=== PATIENT | female | born 1990 | race Caucasian/White ===

== ENCOUNTER 2017-10-28 20:57 | Emergency (ER) | payer OTHER ==
[~2017-10-28] VITALS: Ht 167.6 cm; Wt 91.6 kg
[~2017-10-28 20:57] MED LIST: CHLO25 PO; CIPDEXSU RIGHTEAR; CYCL10 PO; Ciprodex Otic7.5 ML RIGHTEAR; Norco 5-325 Ta1 EACH PO; PROM25 PO; RISP.5 PO; Vistaril50 MG PO
[2017-10-28] MEDS ORDERED: QUET300 PO (21:05)
[2017-10-28] MEDS ORDERED: PENVK500 PO (21:21)
[2017-10-28] MEDS ORDERED: ZADITOR5 ML LEFTEYE (21:21)
[2017-10-28] MEDS ORDERED: KETO10 PO (21:21)
== END 2017-10-28 21:49 | disposition home or self-care (01) ==
LOC: ER 20:57
DX: K02.9 Dental caries, unspecified (principal); H10.12 Acute atopic conjunctivitis, left eye; F20.9 Schizophrenia, unspecified; F17.210 Nicotine dependence, cigarettes, uncomplicated; Z88.8 Allergy status to other drugs, medicaments and biological substances; Z79.899 Other long term (current) drug therapy
CPT/HCPCS: 99283

== ENCOUNTER 2018-07-05 21:53 | Emergency (ER) | payer OTHER ==
[~2018-07-05] VITALS: Ht 167.6 cm; Wt 98.0 kg
[~2018-07-05 21:53] MED LIST changes: +CEFA500ER PO; +CLON.5 PO; +KETO10 PO; +LATUDA80 MG PO; +PENVK500 PO; +QUET300 PO; +ZADITOR5 ML LEFTEYE
[2018-07-05] MEDS ORDERED: Vibramycin100 MG PO (23:21)
== END 2018-07-05 23:36 | disposition home or self-care (01) ==
LOC: ER 21:53
DX: S01.85XA Open bite of other part of head, initial encounter (principal); W54.0XXA Bitten by dog, initial encounter; Z88.8 Allergy status to other drugs, medicaments and biological substances; Z88.0 Allergy status to penicillin; Z79.899 Other long term (current) drug therapy; F20.9 Schizophrenia, unspecified; F17.210 Nicotine dependence, cigarettes, uncomplicated
CPT/HCPCS: 99283

== ENCOUNTER 2019-09-09 14:22 | Emergency (ER) | payer OTHER ==
[~2019-09-09] VITALS: Ht 165.1 cm; Wt 95.2 kg
[~2019-09-09 14:22] MED LIST changes: +Vibramycin100 MG PO
== END 2019-09-09 18:15 | disposition left against medical advice (07) ==
LOC: ER 14:22
DX: Z53.21 Procedure and treatment not carried out due to patient leaving prior to being seen by health care provider (principal)

== ENCOUNTER → 2022-01-03 | Outpatient (CLI) | payer OTHER ==
[2022-01-05 09:39] LABS: Candida species (DNA Probe) Negative (NEGATIVE); G. vaginalis (DNA Probe) Negative (NEGATIVE); T. vaginalis (DNA Probe) Negative (NEGATIVE)
== END | disposition home or self-care (01) ==
LOC: LAB SHORT 11:02 → LAB 11:02
PROVIDERS: Nurse Practitioner Family
DX: B37.3 Candidiasis of vulva and vagina (principal)
CPT/HCPCS: 87480; 87510; 87660